=== PATIENT | male | born 1990 | race Asian ===

== ENCOUNTER 2025-05-09 23:33 | Inpatient (IN) | payer MEDICARE, BC ==
[~2025-05-09] VITALS: Ht 172.7 cm; Wt 99.8 kg
[2025-05-09] MEDS ORDERED: QUET25TA PO (23:55)
[2025-05-09] MEDS ORDERED: TIZA-180 PO (23:55)
[2025-05-09] MEDS ORDERED: TAMS-3 PO (23:55)
[2025-05-09] MEDS ORDERED: FOLI1TAB94 PO (23:55)
[2025-05-09] MEDS ORDERED: BUSP5TAB3 PO (23:55)
[2025-05-09] MEDS ORDERED: ASPI81TA31 PO (23:55)
[2025-05-09] MEDS ORDERED: CLON-418 PO (23:55)
[2025-05-10 00:12] LABS: PLATELET COUNT (AUTO) 343 K/uL (152-348); RED BLOOD CELL COUNT(AUTO) 5.52 MIL/uL (4.06-5.63); RED CELL DISTRIBUTION WIDTH 14.5 % (12.1-16.2); WHITE BLOOD COUNT (AUTO) 7.5 K/uL (3.6-10.2)
[2025-05-10 00:21] LABS: CREATININE 1.1 mg/dL (0.6-1.3); SODIUM SERUM 140 mmol/L (136-145); UREA NITROGEN, BLOOD 6 mg/dL (7-18)
[2025-05-10 00:27] LABS: ASPARTATE AMINOTRANSFERASE 253 U/L (15-37); TOTAL PROTEIN, SERUM 8.4 g/dL (6.4-8.2)
[2025-05-10] MEDS: IV NS 1000 ML 1,000 ML IV ONE (01:29)
[2025-05-10] MEDS: KETOROLAC TROMETHAMINE 15 MG INJ IVP ONE (01:34)
[2025-05-10] MEDS ORDERED: KETOROLAC TROMETHAMINE 15 MG INJ ONE (02:06)
[2025-05-10] MEDS ORDERED: ONDANSETRON 4 MG/2 ML VIAL IV ONE (03:30)
[2025-05-10] MEDS ORDERED: KETOROLAC TROMETHAMINE 15 MG INJ IVP ONE (03:30)
[2025-05-10] MEDS ORDERED: ONDANSETRON 4 MG/2 ML VIAL IV PRN (05:15)
[2025-05-10] MEDS ORDERED: MAGNESIUM HYDROXIDE 30 ML LIQUID UDC PO PRN (05:15)
[2025-05-10 05:45] VITALS: BP 118/69; TEMP 98.1; O2SAT 100
[2025-05-10] MEDS: IV NS 1000 ML 1,000 ML IV PRN (06:03)
[2025-05-10] MEDS: PANTOPRAZOLE SODIUM 40 MG TABLET.DR PO SCH (06:18)
[2025-05-10] MEDS: ACETAMINOPHEN 325 MG TABLET PO PRN (06:22)
[2025-05-10 07:18] LABS: ASPARTATE AMINOTRANSFERASE 168.0 U/L (15-37); CREATININE 0.8 mg/dL (0.6-1.3); SODIUM SERUM 137.0 mmol/L (136-145); TOTAL PROTEIN, SERUM 6.6 g/dL (6.4-8.2); UREA NITROGEN, BLOOD 8.0 mg/dL (7-18)
[2025-05-10 07:31] VITALS: BP 111/55; TEMP 98.4; O2SAT 99
[2025-05-10 07:53] LABS: ETHANOL < 3 MG/DL (0-10)
[2025-05-10 07:56] LABS: *AMPHETAMINE, URINE NEGATIVE (NEGATIVE); *BARBITURATE, URINE NEGATIVE (NEGATIVE); *BENZODIAZEPINE, URINE NEGATIVE (NEGATIVE); *CANNABINOID, URINE NEGATIVE (NEGATIVE); *COCCAINE, URINE NEGATIVE (NEGATIVE); *OPIATE, URINE NEGATIVE (NEGATIVE); *PHENCYCLIDINE SCREEN,URINE NEGATIVE (NEGATIVE); FENTANYL, URINE POSITIVE (NEGATIVE)
[2025-05-10 08:20] LABS: PLATELET COUNT (AUTO) 265 K/uL (152-348); RED BLOOD CELL COUNT(AUTO) 4.81 MIL/uL (4.06-5.63); RED CELL DISTRIBUTION WIDTH 14.1 % (12.1-16.2); WHITE BLOOD COUNT (AUTO) 6.4 K/uL (3.6-10.2)
[2025-05-10] MEDS: ENOXAPARIN SODIUM 40 MG/0.4 ML DISP.SYRIN SQ SCH (08:20)
[2025-05-10] MEDS: LORAZEPAM 0.5 MG TABLET PO ONE (08:21)
[2025-05-10 10:57] VITALS: BP 114/53; TEMP 98.1; O2SAT 99
[2025-05-10] MEDS ORDERED: ZONI100C31 PO ×2 (11:24→11:25)
[2025-05-10] MEDS ORDERED: LAMO100T17 PO (11:26)
[2025-05-10] MEDS ORDERED: QUET100T32 PO (11:26)
[2025-05-10] MEDS ORDERED: TRAZ-257 PO (11:27)
[2025-05-10] MEDS ORDERED: BUPR1FIL19 SL (11:27)
[2025-05-10] MEDS ORDERED: POLY510P31 PO (11:28)
[2025-05-10] MEDS ORDERED: CLOP75TA15 PO (11:29)
[2025-05-10] MEDS ORDERED: NALO4SPR NS (11:30)
[2025-05-10] MEDS: POTASSIUM CHLORIDE 20 MEQ TAB.PRT.SR PO ONE (11:53)
[2025-05-10] MEDS: ZONISAMIDE 100 MG CAPSULE PO SCH ×2 (11:53→20:15)
[2025-05-10] MEDS ORDERED: DILTIAZEM HCL 60 MG TABLET PO ONE (14:15)
[2025-05-10 15:04] VITALS: BP 108/55; TEMP 98.6; O2SAT 96
[2025-05-10] MEDS ORDERED: NALOXONE NASAL SPRAY 4 MG SPRAY NS PRN (18:45)
[2025-05-10] MEDS ORDERED: POLYETHYLENE GLYCOL 3350 238 GM POWDER PO PRN (18:45)
[2025-05-10 19:00] VITALS: BP 115/24; TEMP 98.4; O2SAT 96
[2025-05-10] MEDS ORDERED: MIRALAX 17 GM POWD.PACK PO PRN (19:00)
[2025-05-10] MEDS: LAMOTRIGINE 100 MG TABLET PO SCH (20:15)
[2025-05-10] MEDS: QUETIAPINE FUMARATE 100 MG TABLET PO SCH (20:15)
[2025-05-10] MEDS: TRAZODONE 100 MG TABLET PO SCH (20:15)
[2025-05-10] MEDS ORDERED: ZONISAMIDE 100 MG CAPSULE PO SCH (21:00)
[2025-05-11 00:39] VITALS: BP 128/57; TEMP 99.4; O2SAT 98
[2025-05-11 04:11] VITALS: BP 102/57; TEMP 98.1; O2SAT 97
[2025-05-11 05:08] LABS: HEPATITIS A AB, IgM Negative (Negative); HEPATITIS B CORE AB, IgM Negative (Negative); HEPATITIS B CORE AB, TOTAL Negative (Negative); HEPATITIS B SURFACE AB, QUAL Non Reactive (.); HEPATITIS C VIRUS ANTIBODY Non Reactive (Non Reactive)
[2025-05-11 06:25] LABS: PLATELET COUNT (AUTO) 265 K/uL (152-348); RED BLOOD CELL COUNT(AUTO) 4.71 MIL/uL (4.06-5.63); RED CELL DISTRIBUTION WIDTH 14.8 % (12.1-16.2); WHITE BLOOD COUNT (AUTO) 5.0 K/uL (3.6-10.2)
[2025-05-11 06:39] LABS: CREATININE 0.7 mg/dL (0.6-1.3); SODIUM SERUM 143.0 mmol/L (136-145); UREA NITROGEN, BLOOD 9.0 mg/dL (7-18)
[2025-05-11 07:37] VITALS: BP 115/67; TEMP 98; O2SAT 98
[2025-05-11] MEDS: POTASSIUM CHLORIDE 20 MEQ POWDER PACKET GT ONE (08:48)
[2025-05-11] MEDS: CLOPIDOGREL 75 MG TABLET PO SCH (08:49)
[2025-05-11] MEDS: ASPIRIN 81 MG TAB.CHEW PO SCH (08:49)
[2025-05-11] MEDS ORDERED: ZONISAMIDE 100 MG CAPSULE PO SCH (09:00)
[2025-05-11] MEDS ORDERED: POTASSIUM CHLORIDE 20 MEQ TAB.PRT.SR PO ONE (09:30)
[2025-05-11] MEDS: NEOMY/BACITRAC/POLYMI OINT 28.35 GM TUBE TOP SCH (10:00)
[2025-05-11 10:09] LABS: ASPARTATE AMINOTRANSFERASE 95.0 U/L (15-37); TOTAL PROTEIN, SERUM 6.7 g/dL (6.4-8.2)
[2025-05-11 10:36] VITALS: BP 123/55; TEMP 98.4; O2SAT 100
[2025-05-11 16:09] VITALS: BP 112/52; TEMP 98.3; O2SAT 98
[2025-05-12 05:51] VITALS: BP 111/61; TEMP 98.2; O2SAT 99
[2025-05-12 07:19] LABS: CREATININE 0.7 mg/dL (0.6-1.3); SODIUM SERUM 143.0 mmol/L (136-145); UREA NITROGEN, BLOOD 10.0 mg/dL (7-18)
[2025-05-12 07:31] LABS: PLATELET COUNT (AUTO) 285 K/uL (152-348); RED BLOOD CELL COUNT(AUTO) 4.77 MIL/uL (4.06-5.63); RED CELL DISTRIBUTION WIDTH 14.8 % (12.1-16.2); WHITE BLOOD COUNT (AUTO) 5.8 K/uL (3.6-10.2)
[2025-05-12 10:41] VITALS: BP 114/57; TEMP 98.2; O2SAT 98
[2025-05-12] MEDS: POTASSIUM CHLORIDE 20 MEQ TAB.PRT.SR PO ONE (13:06)
[2025-05-12 15:58] VITALS: BP_SYST 114; BP_SYST 128; BP_DIAS 52; BP_DIAS 67; TEMP 97.7; TEMP 98; O2SAT 97; O2SAT 98
== END 2025-05-12 17:30 | disposition home or self-care (01) | DRG 101 ==
LOC: ER 23:38 → TELE3 05-10 03:30 → MEDSURG3 05-11 08:10
PROVIDERS: ADMIT Nurse Practitioner Family; ATTEND Internal Medicine
DX: G40.909 Epilepsy, unspecified, not intractable, without status epilepticus (principal); I69.354 Hemiplegia and hemiparesis following cerebral infarction affecting left non-dominant side; R55 Syncope and collapse; R74.01 Elevation of levels of liver transaminase levels; F11.10 Opioid abuse, uncomplicated; K80.20 Calculus of gallbladder without cholecystitis without obstruction; Z79.82 Long term (current) use of aspirin; Z79.02 Long term (current) use of antithrombotics/antiplatelets; Z68.33 Body mass index [BMI] 33.0-33.9, adult; E66.9 Obesity, unspecified; E86.0 Dehydration; E87.6 Hypokalemia; F17.290 Nicotine dependence, other tobacco product, uncomplicated; F32.A Depression, unspecified; Z82.49 Family history of ischemic heart disease and other diseases of the circulatory system; I51.9 Heart disease, unspecified; F99 Mental disorder, not otherwise specified
CPT/HCPCS: 36415; 70450; 71045; 76700; 83605; 83690; 83735; 83921; 84100; 84443; 84484; 85025; 85730; 86704; 86705; 86706; 86709; 86803; 87806; 93005; 93307; 93880; G0378; G0480; J1650; J1885; J7040; J8499